=== PATIENT | female | born 1935 | race Caucasian/White ===

== ENCOUNTER → 2017-05-13 | Outpatient (CLI) | payer MEDICARE ==
[2017-05-13 13:14] LABS: Magnesium 1.9 mg/dL (1.6-2.3); Phosphorous 3.9 mg/dL (2.5-4.5); Uric Acid 7.8 mg/dL (3.7-7.4)
== END | disposition home or self-care (01) ==
LOC: LABWHC1 12:01
PROVIDERS: ATTEND Ophthalmology
DX: H18.423 Band keratopathy, bilateral (principal)
CPT/HCPCS: 36415; 82040; 82310; 82565; 83735; 84100; 84520; 84550

== ENCOUNTER → 2018-04-22 | Outpatient (CLI) | payer MEDICARE ==
--- NOTE | 2018-04-22 11:55 | XR ---
EXAMINATION TYPE: XR chest 2V DATE OF EXAM: 04/22/2018 COMPARISON: NONE INDICATION: Chest pain, fall TECHNIQUE: Frontal and lateral views of the chest are obtained. FINDINGS: The heart size is normal. The pulmonary vasculature is normal. The lungs are clear. No pneumothorax is evident. No acute displaced fractures are identified. IMPRESSION: 1. No acute pulmonary process. 2. No acute posttraumatic changes.
== END | disposition home or self-care (01) ==
LOC: RADXRMAIN 09:47
PROVIDERS: ATTEND Physician Assistant
DX: R07.89 Other chest pain (principal)
CPT/HCPCS: 71046

== ENCOUNTER 2018-06-10 10:47 | Emergency (ER) | payer MEDICARE ==
[2018-06-10 10:52] VITALS: TEMP 98.2
[2018-06-10] MEDS ORDERED: HYDROcodone/APAP 5-325MG 1 EACH TAB PO STA (11:15)
--- NOTE | 2018-06-10 11:18 | ED ---
Upper Extremity HPI - General Chief Complaint: Extremity Injury, Upper Stated Complaint: RT SHOULDER/ARM PAIN FROM FALL Time Seen by Provider: 06/10/18 11:04 Source: patient, RN notes reviewed Mode of arrival: wheelchair Limitations: no limitations - History of Present Illness Initial Comments: This is an 83-year-old female presents emergency Department with chief complaint of right arm pain. Patient states other night she was walking in the dark and states that she bumped into the dresser causing her to fall onto her right shoulder. Patient states she's had severe pain ever since. Denies any head injury no loss conscious. She states most pain is in her right shoulder and right elbow. She does have some bruising noted denies any prior issues. - Related Data Home Medications Medication Instructions Recorded Confirmed Aspirin EC [Ecotrin] 325 mg PO DAILY 06/10/18 06/10/18 Lisinopril 40 mg PO DAILY 06/10/18 06/10/18 Magnesium 200 mg PO HS 06/10/18 06/10/18 Metoprolol Succinate (ER) [Toprol 50 mg PO DAILY 06/10/18 06/10/18 Xl] Multivit-Min/FA/Lycopen/Lutein 1 tab PO DAILY 06/10/18 06/10/18 [Centrum Silver Tablet] Simvastatin [Zocor] 20 mg PO HS 06/10/18 06/10/18 Zolpidem [Ambien] 10 mg PO HS PRN 06/10/18 06/10/18 Previous Rx's Medication Instructions Recorded Hydrocodone/Acetaminophen [Plainwell 1 tab PO Q6HR PRN #12 tab 06/10/18 5-325] Allergies Allergy/AdvReac Type Severity Reaction Status Date / Time No Known Allergies Allergy Verified 06/10/18 11:30 Review of Systems ROS Statement: Those systems with pertinent positive or pertinent negative responses have been documented in the HPI. ROS Other: All systems not noted in ROS Statement are negative. Past Medical History Past Medical History: Hyperlipidemia, Hypertension History of Any Multi-Drug Resistant Organisms: None Reported Past Surgical History: No Surgical Hx Reported Past Psychological History: No Psychological Hx Reported Smoking Status: Former smoker Past Alcohol Use History: None Reported Past Drug Use History: None Reported General Exam Limitations: no limitations General appearance: alert, in no apparent distress Head exam: Present: atraumatic, normocephalic, normal inspection Neck exam: Present: normal inspection, full ROM. Absent: tenderness, meningismus, lymphadenopathy Respiratory exam: Present: normal lung sounds bilaterally. Absent: respiratory distress, wheezes, rales, rhonchi, stridor Cardiovascular Exam: Present: regular rate, normal rhythm, normal heart sounds. Absent: systolic murmur, diastolic murmur, rubs, gallop, clicks Extremities exam: Present: other (Right arm from the shoulder to elbow there is ecchymosis noted there is severe tenderness to the proximal humeral region. There is no forearm tenderness arm is neurovascularly intact and patient has very limited range of motion secondary to pain) Back exam: Present: full ROM. Absent: tenderness Neurological exam: Present: alert, oriented X3, CN II-XII intact, reflexes normal. Absent: motor sensory deficit Skin exam: Present: warm, dry, intact, normal color. Absent: rash Course Vital Signs 06/10/18 10:48 Temperature 98.2 F Pulse Rate 92 Respiratory 18 Rate Blood Pressure 148/87 O2 Sat by Pulse 95 Oximetry Medical Decision Making - Medical Decision Making 83-year-old female presented for fall, right arm pain. Patient has impacted right humeral head fracture patient will be placed in a sling and follow-up with on-call orthopedics. Patient will be discharged with pain medication. Return parameters were discussed Disposition Clinical Impression: Fracture of humeral head, right, closed Disposition: HOME SELF-CARE Condition: Stable Instructions: Arm Fracture in Adults (ED) Additional Instructions: Please wear sling and follow-up with orthopedics as directed.Please return to the Emergency Department if symptoms worsen or any other concerns. Prescriptions: Hydrocodone/Acetaminophen [Plainwell 5-325] 1 tab PO Q6HR PRN #12 tab PRN Reason: Pain Is patient prescribed a controlled substance at d/c from ED?: Yes When asked, does pt state using other controlled substances?: No If prescribed controlled substance>3 days was MAPS reviewed?: Prescribed <3 Days If opioid is for acute pain is fill amount 7 days or less?: Yes If Rx opioid, was Start Talking consent form obtained?: Yes Referrals: Taj Sawyer DO [Primary Care Provider] - 1-2 days Santos Morin MD [STAFF PHYSICIAN] - 1-2 days Time of Disposition: 12:03
--- NOTE | 2018-06-10 12:16 | XR ---
EXAMINATION TYPE: XR humerus RT DATE OF EXAM: 06/10/2018 CLINICAL HISTORY: Fall injury yesterday with pain. TECHNIQUE: Two views of the right humerus are obtained. COMPARISON: Chest x-ray April 22, 2015.. FINDINGS: [place] osseous structures are demineralized. There is acute comminuted minimally displaced fracture through surgical neck of right proximal humerus, fracture fragment appears to include greate r tuberosity. No glenohumeral joint dislocation is seen. Moderate medial spurring incidentally noted. Distal right humerus is intact. Visualized portion of elbow is unremarkable. Mild diffuse subcutaneo us edema is present. IMPRESSION: There is acute comminuted minimally displaced fracture through surgical neck of right pro ximal humerus. (Initial encounter closed type post traumatic fracture)
[2018-06-10 18:42] VITALS: BP 140/86; PULSE 72; RESP 16
== END 2018-06-10 12:00 | disposition home or self-care (01) ==
LOC: EC 10:47
DX: S42.201A Unspecified fracture of upper end of right humerus, initial encounter for closed fracture (principal); S50.01XA Contusion of right elbow, initial encounter; E78.5 Hyperlipidemia, unspecified; I10 Essential (primary) hypertension; Z79.82 Long term (current) use of aspirin; Z79.899 Other long term (current) drug therapy; Z87.891 Personal history of nicotine dependence; W18.09XA Striking against other object with subsequent fall, initial encounter; Y93.01 Activity, walking, marching and hiking
CPT/HCPCS: 99283

== ENCOUNTER → 2018-06-23 | Outpatient (CLI) | payer MEDICARE ==
--- NOTE | 2018-06-24 08:26 | CT ---
EXAMINATION TYPE: CT shoulder RT wo con DATE OF EXAM: 06/23/2018 COMPARISON: Plain film radiographs 06/10/2018 HISTORY: Right shoulder pain after fall. CT DLP: 550.[address] of the right shoulder with reconstruction imaging. TECHNIQUE: Unenhanced CT of the right shoulder was performed with bone and soft tissue window setting s submitted in the axial coronal and sagittal planes. At a separate workstation [id number] TR imaging was o btained. FINDINGS: There is impacted humeral neck fracture noted. There is comminuted fracture component exten ding throughout the humeral head glenohumeral joint is intact. No additional fractures identified wit hin the [id number]. Moderate AC joint arthropathy. Subacromial space is intact. Visualized right l madeleine is unremarkable. Bony structures demonstrate demineralization. IMPRESSION: 1. Impacted surgical neck fracture with the comminuted component extending throughout the humeral hea d. Glenohumeral joint is intact.
== END | disposition home or self-care (01) ==
LOC: RADCTMAIN 17:05
PROVIDERS: ATTEND Orthopaedic Surgery
DX: S42.211A Unspecified displaced fracture of surgical neck of right humerus, initial encounter for closed fracture (principal)

== ENCOUNTER 2019-11-22 14:48 | Inpatient (IN) | payer MEDICARE ==
--- NOTE | 2019-11-22 15:33 | ED ---
General Adult HPI - General Chief complaint: Neuro Symptoms/Deficit Stated complaint: Altered mental status Time Seen by Provider: 11/22/19 14:55 Source: patient, EMS, RN notes reviewed, old records reviewed Mode of arrival: wheelchair Limitations: altered mental status, physical limitation - History of Present Illness Initial comments: This is a 84-year-old female who is transferred to our facility from [facility] for mental status change subacute CVA new-onset atrial fibrillation and a urinary tract infection and also a non-STEMI. [facility] status and found to have these other problems. Patient herself is the only person in the room currently and she gives me no history on and she keeps saying that she does not know why she is here but she know she supposed to why she is here. finally came in and stated that he brought her in because she requested to go to the hospital she wasn't feeling well. stated she made no specific complaint chest that she wasn't feeling well. All other findings were found at [facility] prior to transfer. Dr. Abbott was called from [facility] he agreed to accept the patient but he wanted the patient transferred were we had neurology coverage - Related Data Home Medications Medication Instructions Recorded Confirmed Aspirin EC [Ecotrin] 325 mg PO DAILY 06/10/18 11/22/19 Lisinopril 40 mg PO DAILY 06/10/18 11/22/19 Metoprolol Succinate (ER) [Toprol 50 mg PO DAILY 06/10/18 11/22/19 Xl] Atorvastatin [Lipitor] 20 mg PO HS 11/22/19 11/22/19 rOPINIRole HCL [Requip] 0.25 mg PO TID 11/22/19 11/22/19 Allergies Allergy/AdvReac Type Severity Reaction Status Date / Time No Known Allergies Allergy Verified 11/22/19 16:57 Review of Systems ROS Statement: Those systems with pertinent positive or pertinent negative responses have been documented in the HPI. ROS Other: All systems not noted in ROS Statement are negative. Past Medical History Past Medical History: Hyperlipidemia, Hypertension History of Any Multi-Drug Resistant Organisms: None Reported Past Surgical History: No Surgical Hx Reported Past Psychological History: No Psychological Hx Reported Smoking Status: Former smoker Past Alcohol Use History: None Reported Past Drug Use History: None Reported General Exam - General Exam Comments Initial Comments: GENERAL: Patient is well-developed and well-nourished. Patient is nontoxic and well- hydrated and is in no acute distress. ENT: Neck is soft and supple. No significant lymphadenopathy is noted. Oropharynx is clear. Moist mucous membranes. Neck has full range of motion without eliciting any pain. EYES: The sclera were anicteric and conjunctiva were pink and moist. Extraocular mo vements were intact and pupils were equal round and reactive to light. Eyelids were unremarkable. PULMONARY: Unlabored respirations. Good breath sounds bilaterally. No audible rales rhonchi or wheezing was noted. CARDIOVASCULAR: There is a regular rate and rhythm without any murmurs gallops or rubs. ABDOMEN: Soft and nontender with normal bowel sounds. No palpable organomegaly was noted. There is no palpable pulsatile mass. SKIN: Skin is clear with no lesions or rashes and otherwise unremarkable. NEUROLOGIC: Patient is alert and oriented 1. Cranial nerves II through XII are grossly intact. Motor and sensory are also intact. Normal speech, volume and content. Symmetrical smile. Cerebellar exam patient was unable to perform MUSCULOSKELETAL: Normal extremities with adequate strength and full range of motion. LYMPHATICS: No significant lymphadenopathy is noted PSYCHIATRIC: Normal psychiatric evaluation. Limitations: altered mental status, physical limitation Course Vital Signs 11/22/19 11/22/19 11/22/19 14:54 15:04 16:01 Temperature 98.6 F 98.6 F Pulse Rate 108 H 105 H 101 H Respiratory 18 18 18 Rate Blood Pressure 159/97 159/97 153/91 O2 Sat by Pulse 97 98 99 Oximetry 11/22/19 16:59 Temperature Pulse Rate 104 H Respiratory 18 Rate Blood Pressure 154/92 O2 Sat by Pulse 98 Oximetry Medical Decision Making - Medical Decision Making EKG showed atrial flutter with variable block at 105 bpm QRS is 90 QT interval 370 QTC is 499. Patient's EKG shows no ST segment elevation or depression. Disposition Clinical Impression: NSTEMI (non-ST elevated myocardial infarction), New onset atrial flutter, UTI (urinary tract infection) Disposition: ADMITTED IP TO THIS HOSP
[2019-11-22] MEDS ORDERED: NITROGLYCERIN SL TABS 0.4 MG TAB SUBLINGUAL PRN (16:19)
[2019-11-22] MEDS: METOPROLOL SUCCINATE (ER) 50 MG TAB.ER.24H PO SCH (18:39)
[2019-11-22] MEDS: LISINOPRIL 20 MG TAB PO SCH (18:39)
[2019-11-22] MEDS: NITROGLYCERIN OINT 1 INCH/GM PACKET TOPICAL SCH (18:39)
--- NOTE | 2019-11-22 19:00 | P.CNNES ---
History of Present Illness Consult date: 11/22/19 Requesting physician: Shabbir Abbott Reason for Consult: CVA History of Present Illness: Patient is a 84-year-old female with history of hypertension, hyperlipidemia, was brought to the [facility] today at 11:06 AM for altered mental status. Patient lives with her and apparently patient suffered from a fall couple days ago. She has some mental status change, that got worse yesterday, with difficulty of expressing herself. Finally they decided to come to the ER. According to the ED records, patient has mental status changes going on for "3 weeks since she had a fall". Patient underwent workup at [facility] including CBC which was normal, with MCV 96.2. Chem-7 was normal with BU and 28 creatinine 1.8. LFTs normal TFTs normal. UA showed positive nitrite, 3+ leukocyte Estrace, > 25 WBC and > 30 bacteria. PT/PTT is normal with INR 1.07. EKG showed atrial fibrillation, which is new onset. Chest x-ray showed no acute process. Patient underwent Computed tomography scan of head from this morning revealed no acute intracranial hemorrhage mass effect or midline shift. There is diminished continuation along the periventricular white matter of both hemispheres and diminished attenuation along the left occipital lobe consistent with subacute infarcts. No acute bleed or subdural collection. No cerebellar ectopia. Patient was given aspirin and Rocephin at [facility]. Heparin was not started because of presence of CVA. Patient was transferred to [facility] for neurological evaluation. Patient at present appears to be very hard of hearing. Patient also has some expressive aphasia. Patient has history of hypertension, but denies diabetes or any tobacco use. She denies any previous history of CVA. Patient states that she uses a cane at home but not often. Patient lives with her , has no children. Review of Systems Denies headache, diplopia, facial droop or focal numbness tingling or weakness. Denies chest pain shortness of breath wheezing or cough. Past Medical History Past Medical History: Hyperlipidemia, Hypertension History of Any Multi-Drug Resistant Organisms: None Reported Past Surgical History: No Surgical Hx Reported Past Psychological History: No Psychological Hx Reported Smoking Status: Former smoker Past Alcohol Use History: None Reported Past Drug Use History: None Reported Medications and Allergies Home Medications Medication Instructions Recorded Confirmed Type Aspirin EC [Ecotrin] 325 mg PO DAILY 06/10/18 11/22/19 History Lisinopril 40 mg PO DAILY 06/10/18 11/22/19 History Metoprolol Succinate (ER) [Toprol 50 mg PO DAILY 06/10/18 11/22/19 History Xl] Atorvastatin [Lipitor] 20 mg PO HS 11/22/19 11/22/19 History rOPINIRole HCL [Requip] 0.25 mg PO TID 11/22/19 11/22/19 History Allergies Allergy/AdvReac Type Severity Reaction Status Date / Time No Known Allergies Allergy Verified 11/22/19 16:57 Physical Examination - Vital Signs Vital Signs: Vital Signs Temp Pulse Pulse Resp BP BP Pulse Ox 11/22/19 18:15 96.7 F L 116 H 20 183/93 97 11/22/19 16:59 104 H 18 154/92 98 11/22/19 16:01 101 H 18 153/91 99 11/22/19 15:04 98.6 F 105 H 18 159/97 98 11/22/19 14:54 98.6 F 108 H 18 159/97 97 Intake and Output 11/22/19 11/22/19 11/22/19 06:59 14:59 22:59 Other: Weight 81.647 kg On examination patient is an elderly female, in no distress. Patient is alert and awake. Patient knows that she is in the hospital. Patient has significant anomia. Patient knows name of the current president but could not speak it out. She however is fluent, and able to express herself. Could not name 3 out of 3 objects presented. Patient can repeat some simple phrases but not longer sentences, partly because of severely decreased hearing. Very mild dysarthria. On cranial examination pupils are round and reacting to light. Visual aleman revealed right homonymous hemianopia. Face is symmetric and tongue protrudes the midline. Palatal elevation and sensation normal. On muscle strength testing there is no pronator drift and the strength is normal in arms and legs distally and proximally. Sensations are equal with no neglect. No ataxia for [id number] testing. Tone and bulk of muscles normal. Gait deferred. There is no obvious bruit, S1 and S2 audible. Peripheral pulses present. Abdomen soft nontender. 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 Patient has new onset atrial fibrillation, therefore stroke is probably cardioembolic. * Hypertension * Acute UTI * Very hard of hearing. Plan: * I will perform an MRI of the brain. If no evidence of hemorrhagic conversion, then patient will be cleared for anticoagulation. * For now, patient will be continued on aspirin 325 mg daily. * We will check carotid Doppler to rule out carotid stenosis. * 2-D echo to evaluate for any left ventricular or left atrial thrombus. * Hemoglobin A1c, fasting a.m. lipid panel. * Patient currently on Rocephin for acute UTI. * Permissible hypertension. * Neurology will follow.
--- NOTE | 2019-11-22 21:43 | US ---
EXAMINATION TYPE: US carotid duplex BILAT DATE OF EXAM: 11/22/2019 COMPARISON: MR CLINICAL HISTORY: CVA, rule out IC hemorrhage, rule out LA thrombus. CVA. Poor historian. EXAM MEASUREMENTS: RIGHT: Peak Systolic Velocity (PSV) cm/sec ----- Right CCA: 50.7 ----- Right ICA: 84.9 ----- Right ECA: 74.7 ICA/CCA ratio: 1.7 RIGHT: End Diastole cm/sec ----- Right CCA: 23.0 ----- Right ICA: 30.5 ----- Right ECA: 13.6 LEFT: Peak Systolic Velocity (PSV) cm/sec ----- Left CCA: 47.6 ----- Left ICA: 55.9 ----- Left ECA: Not evaluated, not well seen. ICA/CCA ratio: 1.2 LEFT: End Diastole cm/sec ----- Left CCA: 11.9 ----- Left ICA: 19.6 ----- Left ECA: - VERTEBRALS (direction of flow): Right Vertebral: Antegrade Left Vertebral: Antegrade Rhythm: Arrhythmia Exam is very limited. Tortuous CCA and ICA bilaterally. Left ECA not well visualized. No elevated mynor ocities obtained. IMPRESSION: There is antegrade flow in the vertebral arteries. The images and measurements suggest c lose to 0% stenosis in both internal carotid arteries. Criteria for Assigning % of Stenosis / Diameter reduction (Estimation based on the indirect measurements of the internal carotid artery velocities (ICA PSV). 1. Normal (no stenosis)=ICA PSV < 125 cm/s: ratio < 2.0: ICA EDV<40 cm/s. 2. Less than 50% stenosis=ICA PSV < 125 cm/s: ratio < 2.0: ICA EDV<40 cm/s. 3. 50 to 69% stenosis=ICA PSV of 125 to 230 cm/s: ration 2.0 ? 4.0: ICA EDV 40-100 cm/s. 4. Greater than 70% stenosis to near occlusion= ICA PSV > 230 cm/s: ratio > 4.0: ICA EDV > 100 cm/s. 5. Near occlusion= ICA PSV velocities may be low or undetectable: variable ratio and ICA EDV. 6. Total occlusion=unable to detect flow.
[2019-11-22] MEDS: ATORVASTATIN 20 MG TAB PO SCH (22:25)
[2019-11-23] MEDS: NITROGLYCERIN OINT 1 INCH/GM PACKET TOPICAL SCH ×2 (00:15→06:40)
[2019-11-23] MEDS: ACETAMINOPHEN TAB 325 MG TAB PO PRN ×2 (03:50→20:02)
[2019-11-23 06:56] LABS: Cholesterol 126 mg/dL (<200); HDL Cholesterol 48 mg/dL (40-60); LDL Cholesterol,Calculated 66 mg/dL (0-99); Triglycerides 58 mg/dL (<150)
[2019-11-23] MEDS: ASPIRIN 325 MG TAB PO SCH (09:35)
[2019-11-23] MEDS: METOPROLOL SUCCINATE (ER) 50 MG TAB.ER.24H PO SCH (09:35)
[2019-11-23] MEDS: LISINOPRIL 20 MG TAB PO SCH (09:35)
--- NOTE | 2019-11-23 10:36 | P.CRDCN ---
History of Present Illness Consult date: 11/23/19 Consult reason: atrial fibrillation Chief complaint: Right-sided weakness and expressive aphasia History of present illness: This is an 84-year-old female who follows with as her primary physician, she does not have a claim specialist. History was obtained both from the patient and her who are at bedside. Patient does have a history of hypertension, hyperlipidemia. According to the , patient had experienced a fall, a couple of weeks ago according to him, she was also noted to have some mental status changes. He finally convinced her to go to the hospital. She presented to [facility] yesterday morning with symptoms of right-sided weakness and expressive aphasia. The patient states she knew what she wanted to say what but was unable to get the words out. Her EKG on presentation here showed atrial fibrillation with occasional PVCs. Heart rate 105. Carotid Doppler study revealed antegrade flow in the vertebral arteries. No significant stenosis. Blood pressure 116/70 with a heart rate of 102, 96% on room air. She is afebrile. Positive UTI on urinalysis performed at [facility]. CBC normal at [facility], sodium 142, potassium 4.3, BUN 18, creatinine 1.5, troponin 0.75, 0.70. At the time of my examination this morning, the patient is resting comfortably in bed, she denies any dizziness or lightheadedness, still has mild weakness on the right side however significantly improved, still experiencing some mild expressive aphasia. Past Medical History Past Medical History: Hyperlipidemia, Hypertension History of Any Multi-Drug Resistant Organisms: None Reported Past Surgical History: No Surgical Hx Reported Past Psychological History: No Psychological Hx Reported Smoking Status: Former smoker Past Alcohol Use History: None Reported Past Drug Use History: None Reported Medications and Allergies Home Medications Medication Instructions Recorded Confirmed Type Aspirin EC [Ecotrin] 325 mg PO DAILY 06/10/18 11/22/19 History Lisinopril 40 mg PO DAILY 06/10/18 11/22/19 History Metoprolol Succinate (ER) [Toprol 50 mg PO DAILY 06/10/18 11/22/19 History Xl] Atorvastatin [Lipitor] 20 mg PO HS 11/22/19 11/22/19 History rOPINIRole HCL [Requip] 0.25 mg PO TID 11/22/19 11/22/19 History Allergies Allergy/AdvReac Type Severity Reaction Status Date / Time No Known Allergies Allergy Verified 11/22/19 16:57 Physical Exam Vitals: Vital Signs Temp Pulse Pulse Resp BP BP Pulse Ox 11/23/19 08:30 98 F 102 H 17 116/72 96 11/23/19 04:00 97.2 F L 101 H 18 130/74 95 11/23/19 00:00 98.6 F 75 18 132/60 96 11/22/19 19:46 98.6 F 80 20 142/78 96 11/22/19 18:15 96.7 F L 116 H 20 183/93 97 11/22/19 16:59 104 H 18 154/92 98 11/22/19 16:01 101 H 18 153/91 99 11/22/19 15:04 98.6 F 105 H 18 159/97 98 11/22/19 14:54 98.6 F 108 H 18 159/97 97 Intake and Output 11/22/19 11/23/19 11/23/19 22:59 06:59 14:59 Output Total 1000 Balance -1000 Output: Urine 1000 Other: Voiding Method Indwelling Catheter # Voids 1 Weight 95 kg 95 kg PHYSICAL EXAMINATION: GENERAL: 84-year-old female in no acute distress at the time of my HEENT: Head is atraumatic, normocephalic. Pupils equal, round. Sclera anicteric. Conjunctiva are clear. Mucous membranes of the mouth are moist. Neck is supple. There is no elevated jugular venous pressure. No carotid bruit is heard. HEART EXAMINATION: Heart S1 and S2 irregularly irregular a systolic murmur is heard CHEST EXAMINATION: Lungs are clear to auscultation and precussion. No chest wall tenderness is noted on palpation or with deep breathing. ABDOMEN: Soft, nontender. Bowel sounds are heard. No organomegaly noted. EXTREMITIES: 2+ peripheral pulses with no evidence of peripheral edema and no calf tenderness noted. NEUROLOGIC [patient is awake, alert and oriented 3, evidence of expressive aphasia . Results Cardiac Enzymes 11/22/19 11/22/19 Range/Units 17:56 23:25 Troponin I 0.759 H* 0.706 H* (0.000-0.034) ng/mL Lipids 11/23/19 Range/Units 06:04 Triglycerides 58 (<150) mg/dL Cholesterol 126 (<200) mg/dL HDL Cholesterol 48 (40-60) mg/dL Current Medications Generic Name Dose Route Start Last Admin Trade Name Freq PRN Reason Stop Dose Admin Acetaminophen 650 mg 11/23/19 02:30 11/23/19 03:50 Tylenol Tab PO 650 mg Q6HR PRN Administration Fever and/ or Pain Aspirin 325 mg 11/23/19 09:00 11/23/19 09:35 Aspirin PO 325 mg DAILY VITA Administration Atorvastatin Calcium 20 mg 11/22/19 21:00 11/22/19 22:25 Lipitor PO 20 mg HS VITA Administration Ceftriaxone Sodium 1 gm/ 50 mls @ 100 mls/hr 11/23/19 09:00 11/23/19 09:35 Sodium Chloride IVPB 100 mls/hr Q24HR VITA Administration Lisinopril 40 mg 11/22/19 18:45 11/23/19 09:35 Zestril PO 40 mg DAILY VITA Administration Metoprolol Succinate 50 mg 11/22/19 18:45 11/23/19 09:35 Toprol Xl PO 50 mg DAILY VITA Administration Nitroglycerin 0.4 mg 11/22/19 16:19 Nitrostat SUBLINGUAL Q5M PRN Chest Pain Nitroglycerin 1 inch 11/22/19 18:00 11/23/19 06:40 Nitro-Bid Oint TOPICAL 1 inch Q6HR VITA Administration Ropinirole HCl 0.25 mg 11/22/19 22:00 11/23/19 09:35 Requip PO 0.25 mg TID VITA Administration Intake and Output 11/22/19 11/23/19 11/23/19 22:59 06:59 14:59 Output Total 1000 Balance -1000 Output: Urine 1000 Other: Voiding Method Indwelling Catheter # Voids 1 Weight 95 kg 95 kg Patient Weight 11/24/19 06:59 Weight 95 kg EKG Interpretations (text) EKG shows atrial fibrillation with moderately rapid ventricular response Assessment and Plan Plan: Assessment and plan #1 acute CVA, with persistent evidence of expressive aphasia #2 new-onset atrial fibrillation, persistent #3 hypertension #4 hyperlipidemia #5 acute UTI Plan We will obtain an echocardiogram with Doppler study as well as a TSH level. Patient does not have any significant carotid stenosis, she is scheduled today to undergo an MRI. Patient will require anticoagulation once cleared by neurology. Continue metoprolol 50 mg daily and discontinue the Nitropaste. Further recommendations to follow. DNP note has been reviewed, I agree with a documented findings and plan of care. Patient was seen and examined.
--- NOTE | 2019-11-23 12:50 | ECHOF ---
Referral Reason:CVA, rule out IC hemorrhage, rule out LA thrombus MEASUREMENTS -------- HEIGHT: 165.1 cm WEIGHT: 94.8 kg BP: 130/70 RVIDd: 3.3 cm (< 3.3) IVSd: 1.3 cm (0.6 - 1.1) LVIDd: 4.1 cm (3.9 - 5.3) LVPWd: 1.2 cm (0.6 - 1.1) IVSs: 1.8 cm LVIDs: 3.3 cm LVPWs: 1.7 cm LA Diam: 3.5 cm (2.7 - 3.8) LAESV Index (A-L): 24.47 ml/m Ao Diam: 3.4 cm (2.0 - 3.7) AV Cusp: 1.9 cm (1.5 - 2.6) MV EXCURSION: 18.547 mm (> 18.000) MV EF SLOPE: 116 mm/s (70 - 150) EPSS: 0.6 cm RAP: 5.00 mmHg RVSP: 30.03 mmHg FINDINGS -------- Atrial fibrillation. This was a technically adequate study. The left ventricular size is normal. There is mild concentric left ventricular hypertrophy. Overa ll left ventricular systolic function is mild-moderately impaired with, an EF between 40 - 45 %. The right ventricle is mildly enlarged. Normal LA size by volume 22+/-6 ml/m2. The right atrium is normal in size. Contrast study was performed with 2 iv injections of 8 ccs of agitated normal saline, at rest, and wi th cough. Interatrial and interventricular septum intact. No PFO There is mild aortic valve sclerosis. The mitral valve is normal. Mild tricuspid regurgitation present. Right ventricular systolic pressure is normal at < 35 mmHg. Trace/mild (physiologic) pulmonic regurgitation. The aortic root size is normal. IVC Not well visulized. There is no pericardial effusion. CONCLUSIONS -------- 1. Atrial fibrillation. 2. This was a technically adequate study. 3. The left ventricular size is normal. 4. There is mild concentric left ventricular hypertrophy. 5. Overall left ventricular systolic function is mild-moderately impaired with, an EF between 40 - 45 %. 6. The right ventricle is mildly enlarged. 7. Normal LA size by volume 22+/-6 ml/m2. 8. The right atrium is normal in size. 9. Contrast study was performed with 2 iv injections of 8 ccs of agitated normal saline, at rest, and with cough. 10. Interatrial and interventricular septum intact. 11. No PFO 12. There is mild aortic valve sclerosis. 13. The mitral valve is normal. 14. Mild tricuspid regurgitation present. 15. Right ventricular systolic pressure is normal at < 35 mmHg. 16. Trace/mild (physiologic) pulmonic regurgitation. 17. The aortic root size is normal. 18. IVC Not well visulized. 19. There is no pericardial effusion. LATRINE CLEANER: Keturah Wilkinson RDCS
--- NOTE | 2019-11-23 12:54 | P.PN ---
Subjective Progress Note Date: 11/23/19 Patient not much improved. No new focal symptoms. Denies headache. Still problems with word finding, slurred speech and visual field deficits. Spoke to patient's who was present today. He states that patient's symptoms with speech difficulty started actually on 11/20/2019 in the afternoon. They stayed home, thinking the symptoms will go away. The symptoms got worse yesterday on Friday, therefore came to the hospital. Objective - Vital Signs Vital signs: Vital Signs Temp 98 F 11/23/19 08:30 Pulse 90 11/23/19 12:05 Resp 17 11/23/19 12:05 BP 127/78 11/23/19 12:05 Pulse Ox 98 11/23/19 12:05 Intake & Output 11/22/19 11/23/19 11/23/19 18:59 06:59 18:59 Intake Total 50 Output Total 1000 Balance -1000 50 Weight 81.647 kg 95 kg 95 kg Intake: Intake, IV Titration 50 Amount cefTRIAXone 1 gm In 50 Sodium Chloride 0.9% 50 ml @ 100 mls/hr IVPB Q24HR [facility] Rx#:[id number] Output: Urine 1000 Other: Voiding Method Indwelling Catheter # Voids 1 - Exam On examination patient has mild dysarthria. Patient not able to name 3 out of 3 objects presented. She can express. Some paraphasic errors. When I asked to name, "thumb", patient states was "paper". Face is symmetric and tongue protrudes the midline. 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 Muscle strength is normal. Sensations equal. - Labs Labs: Abnormal Lab Results - Last 24 Hours (Table) 11/22/19 11/22/19 Range/Units 17:56 23:25 Troponin I 0.759 H* 0.706 H* (0.000-0.034) ng/mL Assessment and Plan Assessment: * 84-year-old female admitted with mild expressive aphasia, and right homonymous hemianopia, likely due to subacute ischemic stroke involving the left occipital lobe. Patient has new onset atrial fibrillation, therefore stroke is probably cardioembolic. * New onset atrial fibrillation * Elevated cardiac enzymes * Hypertension * Acute UTI * Very hard of hearing. Plan: * Await MRI of the brain. If no evidence of hemorrhagic conversion, then patient will be cleared for anticoagulation. * For now, patient will be continued on aspirin 325 mg daily. * Carotid Doppler showed no evidence of carotid stenosis. Antegrade flow in both vertebral arteries. * 2-D echo revealed atrial fibrillation. Left ventricular systolic function is mild to moderately impaired. EF 40-45%. Left atrial size is normal. No evidence of interatrial or interventricular shunt after agitated saline was injected. Mild aortic valve sclerosis. * Hemoglobin A1c pending, fasting a.m. lipid panel with cholesterol 126, LDL 110, HDL 48 and triglycerides 58. Continue statins. * Patient currently on Rocephin for acute UTI. * DVT prophylaxis. * Permissible hypertension. * Neurology will follow.
[2019-11-23 12:55] LABS: Hemoglobin A1C 5.2 % (4.0-6.0)
--- NOTE | 2019-11-23 15:28 | MR ---
EXAMINATION TYPE: MR brain wo con DATE OF EXAM: 11/23/2019 COMPARISON: None HISTORY: CVA, rule out IC hemorrhage, rule out LA thrombus CONTRAST: Performed utilizing 0 mL intravenous Gadavist gadolinium contrast. TECHNIQUE: Multiplanar, multiecho imaging on a 3.0 Margie magnet is performed through the brain. Stud y is performed within 24 hours of arrival to the hospital. The craniovertebral junction is normal. The pituitary is normal. Diffusion-weighted imaging is performed. There is hyperintensity through the posterior left parietal lobe extending from the watershed region towards the occipital region. This is adjacent to the occip ital horn of the lateral ventricle. Fast brain protocol was utilized. There is extensive white matter change in the periventricular white matter likely on the basis of chronic white matter ischemic changes. Ventricles and sulci are prominent for the patient age. IMPRESSIONS: 1. Acute posterior left parietal-occipital infarct. 2. No suspicious susceptibility artifact to suggest acute hemorrhage. 3. Patchy periventricular white matter chronic ischemic type change with age-related atrophy.
--- NOTE | 2019-11-23 17:44 | P.HPIM ---
History of Present Illness H&P Date: 11/23/19 Chief Complaint: Increasing confusion History of present complaint: This is a pleasant 84-year-old patient of Dr. Kalli Sawyer. Chronic stable medical conditions include arthritis, hypertension, hyperlipidemia. History is obtained mainly by the at the bedside. Patient normally uses a cane to get about. Patient was noticed to become a bit confused, and also vision rundown. She'll unable to read. Apparently patient took a fall about 2-3 weeks ago. Some the symptoms seem to be from then. Patient was taken down to [facility], but because they did not have a neurology service patient was transferred here. Patient denies any focal weakness in the arms or leg. No problems swallowing. Patient does found to have some troponin positive in atrial fibrillation. UA was positive but patient denies any urinary symptoms. Consultation was made both to cardiology and neurology. Review of systems: GEN.: Tired EYES: Decreased vision HEENT: Decreased hearing NECK: None RESPIRATORY: None CARDIOVASCULAR: None GASTROINTESTINAL: None GENITOURINARY: None MUSCULOSKELETAL: Some joint pains LYMPHATICS: None HEMATOLOGICAL: None PSYCHIATRY: slightly forgetful NEUROLOGICAL: As above.. Past medical history to include: Hypertension, hyperlipidemia, osteoarthritis, Social history: Does smoke in the past. . Does use a cane to get about. Family history: Reviewed, noncontributory to presentation Physical examination: VITAL SIGNS: 98.6, 108, 18, 159/97, 97% on room air GENERAL: BMI 34.9, sitting up in the chair, comfortable. EYES: Pupils equal. Conjunctiva normal. HEENT: External appearance of nose and ears normal, oral cavity grossly normal. NECK: JVD not raised; masses not palpable. HEART: Heart sounds irregular; no edema. LUNGS: Respiratory rate normal; decreased breath sounds. ABDOMEN: Soft, nontender, liver spleen not palpable, no masses palpable. PSYCH: Patient able to answer simple questionsl. MUSCULOSKELETAL: Evidence of OA NEUROLOGICAL: Cranial nerves grossly intact; no facial asymmetry, power and se nsation grossly intact. Sometimes difficulty finding words. LYMPHATICS: No lymph nodes palpable in the axilla and neck INVESTIGATIONS, reviewed in the clinical context: Troponin I 0.7, 0.7, LDL 66 EKG tracing personally reviewed by me-atrial flutter with variable rate, PVCs Carotid Doppler-no crackles stenosis Computed tomography scan reported from the other hospital suggestive of left occipital lobe subacute infarct Assessment: -Subacute stroke involving the left occipital lobe. Could be embolic due to underlying atrial fibrillation -Persistent atrial fibrillation, with rate control -Essential hypertension -Positive troponin, doubt acute coronary syndrome, likely secondary to stroke -Hard of hearing -Primary osteoarthritis -Restless leg syndrome Plan: Both neurology and oncology were consulted. 2-D echocardiogram and brain MRI was ordered. Patient also on aspirin and Lipitor. PTOT speech consulted. Care was discussed the patient and at the bedside. Past Medical History Past Medical History: Hyperlipidemia, Hypertension History of Any Multi-Drug Resistant Organisms: None Reported Past Surgical History: No Surgical Hx Reported Past Psychological History: No Psychological Hx Reported Smoking Status: Former smoker Past Alcohol Use History: None Reported Past Drug Use History: None Reported Medications and Allergies Home Medications Medication Instructions Recorded Confirmed Type Aspirin EC [Ecotrin] 325 mg PO DAILY 06/10/18 11/22/19 History Lisinopril 40 mg PO DAILY 06/10/18 11/22/19 History Metoprolol Succinate (ER) [Toprol 50 mg PO DAILY 06/10/18 11/22/19 History Xl] Atorvastatin [Lipitor] 20 mg PO HS 11/22/19 11/22/19 History rOPINIRole HCL [Requip] 0.25 mg PO TID 11/22/19 11/22/19 History Allergies Allergy/AdvReac Type Severity Reaction Status Date / Time No Known Allergies Allergy Verified 11/22/19 16:57 Physical Exam Vitals: Vital Signs Temp Pulse Pulse Resp BP BP Pulse Ox 11/23/19 08:30 98 F 102 H 17 116/72 96 11/23/19 04:00 97.2 F L 101 H 18 130/74 95 11/23/19 00:00 98.6 F 75 18 132/60 96 11/22/19 19:46 98.6 F 80 20 142/78 96 11/22/19 18:15 96.7 F L 116 H 20 183/93 97 11/22/19 16:59 104 H 18 154/92 98 11/22/19 16:01 101 H 18 153/91 99 11/22/19 15:04 98.6 F 105 H 18 159/97 98 11/22/19 14:54 98.6 F 108 H 18 159/97 97 Intake and Output 11/22/19 11/23/19 11/23/19 22:59 06:59 14:59 Output Total 1000 Balance -1000 Output: Urine 1000 Other: Voiding Method Indwelling Catheter # Voids 1 Weight 95 kg Results Labs: Abnormal Lab Results - Last 24 Hours (Table) 11/22/19 11/22/19 Range/Units 17:56 23:25 Troponin I 0.759 H* 0.706 H* (0.000-0.034) ng/mL
[2019-11-23] MEDS: ATORVASTATIN 20 MG TAB PO SCH (20:02)
[2019-11-24 04:07] VITALS: RESP 16
[2019-11-24] MEDS: ASPIRIN 325 MG TAB PO SCH (08:40)
[2019-11-24] MEDS: LISINOPRIL 20 MG TAB PO SCH (08:40)
[2019-11-24] MEDS: ACETAMINOPHEN TAB 325 MG TAB PO PRN ×2 (08:40→20:14)
[2019-11-24] MEDS: METOPROLOL SUCCINATE (ER) 50 MG TAB.ER.24H PO SCH (08:40)
--- NOTE | 2019-11-24 12:31 | P.PN ---
Subjective Progress Note Date: 11/24/19 Patient not much improved. Patient appears slightly more slower. No new focal symptoms. Denies headache. Still problems with word finding, slurred speech and visual field deficits. Patient's sister, her niece and patient's were present today. Patient's has reported that her symptoms with speech difficulty started actually on 11/20/2019 in the afternoon. They stayed home, thinking the symptoms will go away. The symptoms got worse yesterday on Friday, therefore came to the hospital. Objective - Vital Signs Vital signs: Vital Signs Temp 98.6 F 11/24/19 08:15 Pulse 94 11/24/19 11:20 Resp 16 11/24/19 11:20 BP 158/99 11/24/19 11:20 Pulse Ox 96 11/24/19 11:20 Intake & Output 11/23/19 11/24/19 11/24/19 18:59 06:59 18:59 Intake Total 230 410 Output Total 275 Balance -45 410 Weight 95 kg 94.3 kg Intake: Intake, IV Titration 50 50 Amount cefTRIAXone 1 gm In 50 50 Sodium Chloride 0.9% 50 ml @ 100 mls/hr IVPB Q24HR [facility] Rx#:[id number] Oral 180 360 Output: Urine 275 Other: Voiding Method Indwelling Catheter Indwelling Catheter - Exam On examination patient has mild to moderate dysarthria. Patient not able to name 3 out of 3 objects presented. She can express. Some paraphasic errors. Patient could not tell the name of the current president. States "I don't like him". She states "I can imagine his face, but cannot name him". She thinks it is Friday, could not tell the current year or the month. She perseverates on Friday. Face is symmetric and tongue protrudes the midline. 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 Muscle strength is normal. Sensations equal. 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 Patient has new onset atrial fibrillation, therefore stroke is probably cardioembolic. * New onset atrial fibrillation * Elevated cardiac enzymes * Hypertension * Acute UTI * Very hard of hearing. Plan: * MRI of the brain revealed acute posterior left parietal occipital infarct. No suspicious susceptibility artifact to suggest acute hemorrhage. Patient may start anticoagulation from a.m., which will be day #6 post CVA. (Based upon the size of stroke, want to hold off on anticoagulation for 5 days post CVA before starting anticoagulation) * For now, patient will be continued on aspirin 325 mg daily. * Carotid Doppler showed no evidence of carotid stenosis. Antegrade flow in both vertebral arteries. * 2-D echo revealed atrial fibrillation. Left ventricular systolic function is mild to moderately impaired. EF 40-45%. Left atrial size is normal. No evidence of interatrial or interventricular shunt after agitated saline was injected. Mild aortic valve sclerosis. * Hemoglobin A1c 5.2, fasting a.m. lipid panel with cholesterol 126, LDL 110, HDL 48 and triglycerides 58. Continue statins. * Patient currently on Rocephin for acute UTI. * DVT prophylaxis. * Permissible hypertension. * Neurology will follow.
--- NOTE | 2019-11-24 15:00 | P.PN ---
Subjective Progress Note Date: 11/24/19 This is an 84-year-old female who follows with as her primary physician, she does not have a care management specialist. History was obtained both from the patient and her who are at bedside. Patient does have a history of hypertension, hyperlipidemia. According to the , patient had experienced a fall, a couple of weeks ago according to him, she was also noted to have some mental status changes. He finally convinced her to go to the hospital. She presented to [facility] yesterday morning with symptoms of right-sided weakness and expressive aphasia. The patient states she knew what she wanted to say what but was unable to get the words out. Her EKG on presentation here showed atrial fibrillation with occasional PVCs. Heart rate 105. Carotid Doppler study revealed antegrade flow in the vertebral arteries. No significant stenosis. Blood pressure 116/70 with a heart rate of 102, 96% on room air. She is afebrile. Positive UTI on urinalysis performed at [facility]. CBC normal at [facility], sodium 142, potassium 4.3, BUN 18, creatinine 1.5, troponin 0.75, 0.70. At the time of my examination this morning, the patient is resting comfortably in bed, she denies any dizziness or lightheadedness, still has mild weakness on the right side however significantly improved, still experiencing some mild expressive aphasia. 11/24/2019 Echo cardiac gram with Doppler study was performed which revealed an ejection fraction of 40-45%. Patient seen and examined today, continues to have expressive aphasia. MRI of the brain did reveal an acute posterior left parietal-occipital infarct. No suspicious for susceptibility to suggest an acut e hemorrhage. Blood pressure 158/90 with a heart rate in the 90s, 96% on room air. Objective - Vital Signs Vital signs: Vital Signs Temp 98.6 F 11/24/19 08:15 Pulse 94 11/24/19 11:20 Resp 16 11/24/19 11:20 BP 158/99 11/24/19 11:20 Pulse Ox 96 11/24/19 11:20 Intake & Output 11/23/19 11/24/19 11/24/19 18:59 06:59 18:59 Intake Total 230 530 Output Total 275 Balance -45 530 Weight 95 kg 94.3 kg Intake: Intake, IV Titration 50 50 Amount cefTRIAXone 1 gm In 50 50 Sodium Chloride 0.9% 50 ml @ 100 mls/hr IVPB Q24HR [facility] Rx#:[id number] Oral 180 480 Output: Urine 275 Other: Voiding Method Indwelling Catheter Indwelling Catheter - Exam PHYSICAL EXAMINATION: GENERAL: 84-year-old female in no acute distress at the time of my HEENT: Head is atraumatic, normocephalic. Pupils equal, round. Sclera anicteric. Conjunctiva are clear. Mucous membranes of the mouth are moist. Neck is supple. There is no elevated jugular venous pressure. No carotid bruit is heard. HEART EXAMINATION: Heart S1 and S2 irregularly irregular a systolic murmur is heard CHEST EXAMINATION: Lungs are clear to auscultation and precussion. No chest wall tenderness is noted on palpation or with deep breathing. ABDOMEN: Soft, nontender. Bowel sounds are heard. No organomegaly noted. EXTREMITIES: 2+ peripheral pulses with no evidence of peripheral edema and no calf tenderness noted. NEUROLOGIC [patient is awake, alert and oriented 3, evidence of expressive aphasia Assessment and Plan Plan: Assessment and plan #1 acute CVA, with persistent evidence of expressive aphasia #2 new-onset atrial fibrillation, persistent #3 hypertension #4 hyperlipidemia #5 acute UTI Plan Echocardiogram with Doppler study was performed which revealed an ejection fraction of 40-45%. Discontinue the current and she does tense and daryl and start the patient on valsartan 320 mg daily, continue Dyazide, Pravachol, flecainide 50 mg by mouth twice a day, atenolol 25 mg twice a day, Eliquis 5 mg by mouth twice a day, Norvasc 10 mg daily. Patient may be able to be discharged home today from our perspective. Follow-up appointment with Dr. Krause in the office post discharge. DNP note has been reviewed, I agree with a documented findings and plan of care. Patient was seen and examined.
[2019-11-24] MEDS ORDERED: METOPROLOL SUCCINATE (ER) 50 MG TAB.ER.24H PO STA (15:01)
[2019-11-24 16:57] LABS: Calcium 9.1 mg/dL (8.4-10.2); Potassium 3.7 mmol/L (3.5-5.1)
[2019-11-24] MEDS: ATORVASTATIN 20 MG TAB PO SCH (20:14)
--- NOTE | 2019-11-25 01:28 | P.PN ---
Progress Note - Text Progress Note Date: 11/24/19 Chief Complaint: Increasing confusion History of present complaint: This is a pleasant 84-year-old patient of Dr. Kalli Sawyer. Chronic stable medical conditions include arthritis, hypertension, hyperlipidemia. History is obtained mainly by the at the bedside. Patient normally uses a cane to get about. Patient was noticed to become a bit confused, and also vision rundown. She'll unable to read. Apparently patient took a fall about 2-3 weeks ago. Some the symptoms seem to be from then. Patient was taken down to [facility], but because they did not have a neurology service patient was transferred here. Patient denies any focal weakness in the arms or leg. No problems swallowing. Patient does found to have some troponin positive in atrial fibrillation. UA was positive but patient denies any urinary symptoms. Consultation was made both to cardiology and neurology. Hospital course: Admitted with a diagnosis of subacute stroke in the left parietal-occipital lobe, persistent atrial fibrillation. Today-laying in bed. No new issues. Tolerating a diet. Medications adjusted by cardiogenic. Review of systems: Attempted for constitutional, cardiovascular, GI, pulmonary. Neurological, relevant finding as above Active Medications Acetaminophen (Tylenol Tab) 650 mg PO Q6HR PRN PRN Reason: Fever and/ or Pain Last Admin: 11/24/19 20:14 Dose: 650 mg Documented by: Atorvastatin Calcium (Lipitor) 20 mg PO HS [facility] Last Admin: 11/24/19 20:14 Dose: 20 mg Documented by: Enoxaparin Sodium (Lovenox) 40 mg SQ DAILY [facility] Ceftriaxone Sodium 1 gm/ (Sodium Chloride) 50 mls @ 100 mls/hr IVPB Q24HR [facility] Last Admin: 11/24/19 08:39 Dose: 100 mls/hr Documented by: Lisinopril (Zestril) 40 mg PO DAILY [facility] Last Admin: 11/24/19 08:40 Dose: 40 mg Documented by: Metoprolol Succinate (Toprol Xl) 100 mg PO DAILY [facility] Nitroglycerin (Nitrostat) 0.4 mg SUBLINGUAL Q5M PRN PRN Reason: Chest Pain Ropinirole HCl (Requip) 0.25 mg PO TID [facility] Last Admin: 11/24/19 20:14 Dose: 0.25 mg Documented by: Physical examination: VITAL SIGNS: 97, 94, 16, 127/75, 96% room air GENERAL: Propped up in bed, eating EYES: Pupils equal. Conjunctiva normal. HEENT: External appearance of nose and ears normal, oral cavity grossly normal. NECK: JVD not raised; masses not palpable. HEART: Heart sounds irregular; no edema. LUNGS: Respiratory rate normal; decreased breath sounds. ABDOMEN: Soft, nontender, liver spleen not palpable, no masses palpable. PSYCH: Patient able to answer simple questionsl. MUSCULOSKELETAL: Evidence of OA NEUROLOGICAL: Cranial nerves grossly intact; no facial asymmetry, power and sensation grossly intact. Sometimes difficulty finding words. INVESTIGATIONS, reviewed in the clinical context: MRI brain-acute posterior left parietal occipital infarct 2-D echo-year 40-45% Troponin I 0.7, 0.7, LDL 66 EKG tracing personally reviewed by me-atrial flutter with variable rate, PVCs Carotid Doppler-no crackles stenosis Computed tomography scan reported from the other hospital suggestive of left occipital lobe subacute infarct Assessment: -Subacute stroke involving the left occipital lobe. Could be embolic due to underlying atrial fibrillation -Chronic congestive heart failure from systolic dysfunction EF 40-45% -Persistent atrial fibrillation, with rate control -Essential hypertension -Positive troponin, doubt acute coronary syndrome, likely secondary to stroke -Hard of hearing -Primary osteoarthritis -Restless leg syndrome Plan: Doing better. Looking at patient going to the [facility]. Discussed with vascular. Further workup as outpatient. Anticoagulation to resume and next couple of days.
[2019-11-25 07:00] LABS: Potassium 3.9 mmol/L (3.5-5.1)
[2019-11-25] MEDS: LISINOPRIL 20 MG TAB PO SCH (08:30)
[2019-11-25] MEDS ORDERED: METOPROLOL SUCCINATE (ER) 100 MG TAB.ER.24H PO SCH (09:00)
[2019-11-25] MEDS ORDERED: ENOXAPARIN 40 MG/0.4 ML SYRINGE SQ SCH (09:00)
--- NOTE | 2019-11-25 12:28 | P.PN ---
Subjective Progress Note Date: 11/25/19 Patient appears better today. No new complaints. Still with some slurred speech, and visual field deficits. No new focal symptoms. Denies headache. Patient's was present today. Patient's has reported that her symptoms with speech difficulty started actually on 11/20/2019 in the afternoon. They stayed home, thinking the symptoms will go away. The symptoms got worse yesterday on Friday, therefore came to the hospital. Objective - Vital Signs Vital signs: Vital Signs Temp 97.5 F L 11/25/19 08:00 Pulse 96 11/25/19 08:00 Resp 16 11/25/19 08:00 BP 161/91 11/25/19 08:00 Pulse Ox 96 11/25/19 08:22 Intake & Output 11/24/19 11/25/19 11/25/19 18:59 06:59 18:59 Intake Total 890 Output Total 350 550 Balance 540 -550 Weight 92.3 kg Intake: Intake, IV Titration 50 Amount cefTRIAXone 1 gm In 50 Sodium Chloride 0.9% 50 ml @ 100 mls/hr IVPB Q24HR [facility] Rx#:[id number] Oral 840 Output: Urine 350 550 Other: Voiding Method Indwelling Catheter Indwelling Catheter Indwelling Catheter - Exam On examination patient has mild dysarthria, better than yesterday. Patient not able to name 3 out of 3 objects presented. She can express. Some paraphasic errors. Patient could not tell the name of the current president. Patient still having significant naming difficulty. She can repeat quite well. Face is symmetric and tongue protrudes the midline. 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 Muscle strength is normal. Sensations equal. - Labs CBC & Chem 7: 11/25/19 05:56 Labs: Abnormal Lab Results - Last 24 Hours (Table) 11/24/19 11/25/19 Range/Units 15:42 05:56 BUN 25 H 23 H (7-17) mg/dL Creatinine 1.24 H 1.32 H (0.52-1.04) mg/dL Assessment and Plan Assessment: * 84-year-old female admitted with mild expressive aphasia, and right homonymous hemianopia, likely due to subacute ischemic stroke involving the left occipital lobe. Patient has new onset atrial fibrillation, therefore stroke is probably cardioembolic. * New onset atrial fibrillation * Elevated cardiac enzymes * Hypertension * Acute UTI * Very hard of hearing. Plan: * MRI of the brain revealed acute posterior left parietal occipital infarct. No suspicious susceptibility artifact to suggest acute hemorrhage. Patient may start anticoagulation from a.m. (Based upon the size of stroke, want to hold off on anticoagulation for 5 days post CVA before starting anticoagulation) * May stop aspirin, when anticoagulation is initiated. * Carotid Doppler showed no evidence of carotid stenosis. Antegrade flow in both vertebral arteries. * 2-D echo revealed atrial fibrillation. Left ventricular systolic function is mild to moderately impaired. EF 40-45%. Left atrial size is normal. No evidence of interatrial or interventricular shunt after agitated saline was injected. Mild aortic valve sclerosis. * Hemoglobin A1c 5.2, fasting a.m. lipid panel with cholesterol 126, LDL 110, H DL 48 and triglycerides 58. Continue statins. * Patient currently on Rocephin for acute UTI. * DVT prophylaxis. * May follow up with a neurologist locally in 2-3 weeks after discharge.
[2019-11-25 12:49] VITALS: BP 161/83; PULSE 97; TEMP 98
--- NOTE | 2019-11-25 15:17 | P.DS ---
Providers Date of admission: 11/22/19 16:19 Expected date of discharge: 11/25/19 Attending physician: Shabbir Abbott Consults: 11/22/19 16:20 Consult Physician Routine Consulting Provider: [facility] Consult Reason/Comments: Non-STEMI Do you want consulting provider notified?: Yes Consult Physician Routine Consulting Provider: Deondre Lai Consult Reason/Comments: CVA Do you want consulting provider notified?: Yes Primary care physician: Taj Sawyer Hospital Course: Chief Complaint: Increasing confusion Hospital course: This is a pleasant 84-year-old patient of Dr. Kalli Sawyer. Chronic stable medical conditions include arthritis, hypertension, hyperlipidemia. History is obtained mainly by the at the bedside. Patient normally uses a cane to get about. Patient was noticed to become a bit confused, and also vision rundown. She'll unable to read. Apparently patient took a fall about 2-3 weeks ago. Some the symptoms seem to be from then. Patient was taken down to [facility], but because they did not have a neurology service patient was transferred here. Patient denies any focal weakness in the arms or leg. No problems swallowing. Patient does found to have some troponin positive in atrial fibrillation. UA was positive but patient denies any urinary symptoms. Consultation was made both to cardiology and neurology. Hospital course: Admitted with a diagnosis of subacute stroke in the left parietal-occipital lobe, persistent atrial fibrillation. She has some right having right heminomous heminopia Today-sitting up. Comfortable. Cardiac diet. at the bedside. Will be started on anticoagulation . Discussed with cardiology. Discussed with neurology. Discussion and discharge planning more than 35 minutes. Physical examination: VITAL SIGNS: 97.5, 96, 16, 161/91, 95% on room air GENERAL: Sitting up, comfortable EYES: Pupils equal. Conjunctiva normal. HEENT: External appearance of nose and ears normal, oral cavity grossly normal. NECK: JVD not raised; masses not palpable. HEART: Heart sounds irregular; no edema. LUNGS: Respiratory rate normal; decreased breath sounds. ABDOMEN: Soft, nontender, liver spleen not palpable, no masses palpable. PSYCH: Patient able to answer simple questionsl. MUSCULOSKELETAL: Evidence of OA NEUROLOGICAL: Right heminomous hemianopia Sometimes difficulty finding words. INVESTIGATIONS, reviewed in the clinical context: Potassium 3.9 bun 23 crit 132, TSH 1.5 LDL 66 MRI brain-acute posterior left parietal occipital infarct 2-D echo-year 40-45% Troponin I 0.7, 0.7, LDL 66 EKG tracing personally reviewed by me-atrial flutter with variable rate, PVCs Carotid Doppler-no crackles stenosis Computed tomography scan reported from the other hospital suggestive of left occipital lobe subacute infarct Assessment: -Subacute stroke involving the left occipital lobe. Could be embolic due to underlying atrial fibrillation, causing loss of vision in the right visual field -Chronic congestive heart failure from systolic dysfunction EF 40-45% -Persistent atrial fibrillation, with rate control -Essential hypertension -Positive troponin, doubt acute coronary syndrome, likely secondary to stroke -Hard of hearing -Primary osteoarthritis -Restless leg syndrome Disposition: F/[facility] Plan - Discharge Summary Discharge Rx Participant: Yes New Discharge Prescriptions: New Cefuroxime [Ceftin] 250 mg PO BID #6 tablet Apixaban [Eliquis] 5 mg PO BID #1 tab Continue Metoprolol Succinate (ER) [Toprol XL] 50 mg PO DAILY rOPINIRole HCL [Requip] 0.25 mg PO TID Atorvastatin [Lipitor] 20 mg PO HS Changed Lisinopril 40 mg PO HS #0 Discontinued Aspirin EC [Ecotrin] 325 mg PO DAILY Discharge Medication List Metoprolol Succinate (ER) [Toprol XL] 50 mg PO DAILY 06/10/18 [History] Atorvastatin [Lipitor] 20 mg PO HS 11/22/19 [History] rOPINIRole HCL [Requip] 0.25 mg PO TID 11/22/19 [History] Apixaban [Eliquis] 5 mg PO BID #1 tab 11/25/19 [Rx] Cefuroxime [Ceftin] 250 mg PO BID #6 tablet 11/25/19 [Rx] Lisinopril 40 mg PO HS #0 11/25/19 [Rx] Follow up Appointment(s)/Referral(s): Jono Arrieta DO [STAFF PHYSICIAN] - 1-2 Days Taj Sawyer DO [Primary Care Provider] - As Needed
[2019-11-26] MEDS ORDERED: ENOXAPARIN 30 MG/0.3 ML SYRINGE SQ SCH (09:00)
== END 2019-11-25 17:34 | DRG 65 ==
LOC: EC 14:48 → 3SCARD 16:19
PROVIDERS: ADMIT Hospitalist; ATTEND Hospitalist
DX: I63.10 Cerebral infarction due to embolism of unspecified precerebral artery (principal); I50.22 Chronic systolic (congestive) heart failure; I48.19 Other persistent atrial fibrillation; I48.92 Unspecified atrial flutter; N39.0 Urinary tract infection, site not specified; R47.01 Aphasia; R40.2363 Coma scale, best motor response, obeys commands, at hospital admission; R40.2143 Coma scale, eyes open, spontaneous, at hospital admission; R40.2243 Coma scale, best verbal response, confused conversation, at hospital admission; I11.0 Hypertensive heart disease with heart failure; E78.5 Hyperlipidemia, unspecified; G25.81 Restless legs syndrome; H53.461 Homonymous bilateral field defects, right side; H91.90 Unspecified hearing loss, unspecified ear; I49.3 Ventricular premature depolarization; M19.91 Primary osteoarthritis, unspecified site; W19.XXXA Unspecified fall, initial encounter; Z79.82 Long term (current) use of aspirin; Z79.899 Other long term (current) drug therapy; Z87.891 Personal history of nicotine dependence; R79.89 Other specified abnormal findings of blood chemistry
CPT/HCPCS: 70551; 80048; 80061; 83036; 84443; 84484; 93005; 93306; 93880; 94760; 99285